=== PATIENT | female | born 1990 | race Caucasian/White ===

== ENCOUNTER 2024-04-21 14:20 | Emergency (ER) | payer SELFPAY ==
[2024-04-21 14:36] VITALS: BP 106/69; PULSE 56; RESP 18; TEMP 98.2; BMI 29.9
== END 2024-04-21 15:48 | disposition home or self-care (01) ==
LOC: JERFT 14:20
DX: H16.203 Unspecified keratoconjunctivitis, bilateral (principal); H57.89 Other specified disorders of eye and adnexa
CPT/HCPCS: 99283-25